=== PATIENT | male | born 2000 | race Caucasian/White ===

== ENCOUNTER 2023-05-18 08:00 | Outpatient (RCR) | payer SELFPAY ==
--- NOTE | 2023-04-14 07:19 | HP.OTEVAL ---
Patient's Visit Information Visit Information Visit Information: TOMI LOREDO is a 22 year old M, referred to Occupational Therapy by EVERARDO ANGELA, with a diagnosis of left hand traumatic laceration. Date of Evaluation: 03/30/23 Occupational Therapist: Paulette Abdalla, RISHI/Melania, CHT Subjective Subjective: This 22 year old male was seen for OT eval with dx of open fx of of left MF middle phalanx, extensor tendon laceration of left MF, open fx left 5th Metacarpal head, Extensor tendon laceration of left SM. DOI 03/16/23 Table saw injury DOS 03/22/23 put underwent a irrigation and debridement of open fx. ORIF of left MF open middle phalanx fx placement of dynamic external fixation, Repair of left MF extensor tendon Open treatment of left 5th metacarpophalangeal joint articular fx (fragment excision) Repair of left SF extensor tendon pt arrives s/p 1 week and 1 day s/p with orders for orthosis fabrication , rehabilitation per protocol ( Dr. 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 pt states he is back to work with office tasks pt states he will return to Tuesday2023 pt arrives to day with volar paddle orthosis- good fit in need of no adj, change in strapping as not clinging to Velcro. other than that pt states feel good- pt verbally reports his amadeo. with pin site care and dressing. sites great. ADLs Comments: pt right handed and at time avoiding use of left UE for ADLs and IADls due to newly healing structures Pain left hand: Current Pain Intensity: 3 Pain Intensity Range: 4 ROM ROM Comments: left PIP IF 0/15 left PIP MF -0/trace left PIP RF -10/30 left PIP -5/10 testing rest position Strength Telesales Consultant: right 95# left NT Lateral Pinch: right 22# left NT Tripod Pinch: right 14# left NT Strength Comments: will test left at later date Sensation Sensation Comments: pt states he is able to feel all light touch- will test with monofilaments at later date Quick DASH-Disab of Arm,Shoulder& Hand Quick DASH Score: 56.6650 Goals Goal:100% adherence to protocol: Yes Comment: middle pahlanx fx tension band wire protocol Goal:Daily scar massage when approriate: Yes Goal:ROM equal to unaffected hand: Yes Goal:Telesales Consultant/Pinch strength at least 75% of unaffected hand: Yes Goal:No pain with affected hand use: Yes Goal:PIP Circumferences equal to unaffected hand: Yes Goal:Full use of affected hand in daily activities including work: Yes Other Goal: orthosis use Rehabilitation General Assessment: pt arrives s/p 1 week and 1 day DOS 03/22/23 put underwent a irrigation and debridement of open fx. ORIF of left MF open middle phalanx fx placement of dynamic external fixation, Repair of left MF extensor tendon Open treatment of left 5th metacarpophalangeal joint articular fx (fragment excision) Repair of left SF extensor tendon pt demo need for skilled OT services 2-3x week for 12 weeks to increase pts ROM, strength to return pt to his PLOF. pt demo understanding and agrees to POC. Rehabilitation Potential: Good Anticipated Interventions Anticipated Interventions: Early Active Motion, A/AAROM/PROM, Strengthening, Edema Control, Scar Care, Triggerpoint Release, Desensitization, Sensory Retraining, Modalities, Orthoses, Joint Protection/Energy Conservation, Ergonomic Education, Fine Motor Coord/Arron, Education re assistive Equipment, Education re Diagnosis, Caregiver Training and Home Program Visit Plan Frequency: 1-2x /Week Duration: 3 Months General Plan: s/p day 3-5 edema control- Tention band wires will permit full AROM (unless otherwise ordered) Full arch AROM ex may be performed 4-6x a day 25 repetitions. orthosis between ex and at night s/p day 10-14 suture removed - wound healed may initiate scar mtg. self PROM ex may be added( will hold due to extensor tendon repair)will perform AROM S/P week 3-4 monitor extensor lag- if dr. weston may initiate a custom-josefina. low-load dynamic flexion orthosis s/p wee 4-6 hand based extension orthosis may be reduced to a finger orthosis in extension - Digi-sleeves or gel sleeve may be used for edema and scar S/P 6-8 wearing time of static progressive and dynamic orthosis during the day should gradually be reduced and eliminated- goal would be d/c orthosis during the day and by 8 weeks , and d/c night finger extension orthosis at night by weeks 10 is recommended Hand strengthening my be initiate with putty and hand bell attendant TEXT: Thank you for the opportunity to evaluate your patient. For Medicare and Medicare HMO plans, please review the plan of care and approve it. It will need to be FAXED BACK to us at [phone] for Medicare purposes. Please let me know if there are questions or concerns regarding this plan of care. Physician Signature: Date:
--- NOTE | 2023-04-27 15:20 | HP.OTREVAL ---
Re-Evaluation Intro: EVERARDO ANGELA, It has been my pleasure to treat TOMI LOREDO over the last 4 visits for left hand traumatic laceration. Please see the progress note below for an update on the occupational therapy plan of care! Subjective Subjective: pt arrives to session 5 weeks and 1 day s/p pt demo with orthosis use/ healed wounds noted DIP flexed position on MF Objective Objective/Function: pt was seen for 4 OT visits left MCP LF 0/0 PIP 0/80 left MCP RF 0/65 PIP 0/90 left MCP MF 0/60 PIP 0/50 increase from 0/30 pt demo with DIP extensor lag- orthosis was adj to decrease resting flexion of DIP of MF. pt is still in orthosis while at work and taking it off about 2-3 x a day to do his ex. therapist ed. pt to increase performing his ex more frequently. pt demo understanding. Left LF MCPJ no noted motion. pt ready to have pins out and initiate increase use of hand. therapist ed. pt will perform more x-ray and will then decide on tension band pin removal. Plan Plan Frequency: 1-2x /Week Duration: 3 Months Goals Goals Patient Goals: Regain Mobility, Regain Strength, Improve Fine Motor Skills, Use Hand/Wrist/Arm Normally Again and Be More Independent in ADLS Goal:100% adherence to protocol: Yes Goal:Daily scar massage when approriate: Yes Goal:ROM equal to unaffected hand: Yes Goal:Laborer Ammunition Assembly/Pinch strength at least 75% of unaffected hand: Yes Goal:No pain with affected hand use: Yes Goal:PIP Circumferences equal to unaffected hand: Yes Goal:Full use of affected hand in daily activities including work: Yes Other Goal: orthosis use Anticipated Interventions Anticipated Interventions Anticipated Interventions: Early Active Motion, A/AAROM/PROM, Strengthening, Edema Control, Scar Care, Triggerpoint Release, Desensitization, Sensory Retraining, Modalities, Orthoses, Joint Protection/Energy Conservation, Ergonomic Education, Fine Motor Coord/Arron, Education re assistive Equipment, Education re Diagnosis, Caregiver Training and Home Program Re-Evaluation Ending Re-evaluation ending: Please do not hesitate to contact me at [phone] by phone or if you have questions or concerns regarding this new plan of care! Sincerely, Paulette Abdalla, OTR/L, CHT
--- NOTE | 2023-09-09 10:27 | HP.OT.NRP ---
Patient Information Patient Information: TOMI LOREDO was seen in my office for initial evaluation on 03/30/23. The following Plan of Care was established for this patient: POC Established Initial Frequency: 1-2x /Week Initial Duration: 3 Months Plan: cont as bertram adjust orthosis as tolerated Anticipated Interventions Anticipated Interventions: Early Active Motion, A/AAROM/PROM, Strengthening, Edema Control, Scar Care, Triggerpoint Release, Desensitization, Sensory Retraining, Modalities, Orthoses, Joint Protection/Energy Conservation, Ergonomic Education, Fine Motor Coord/Arron, Education re assistive Equipment, Education re Diagnosis, Caregiver Training and Home Program Last Seen Last Seen: This patient was last seen in our office 05/18/23. Pertinent comments regarding their Occupational therapy will appear below: pt was last seen on 05/18/23 no further apts scheduled and due to time lapse in services pt is d/c at this time. At this point I will be discontinuing this patient from occupational therapy. I would be happy to see this patient again in the future if found appropriate by the physician. Thank you! Paulette Abdalla, OTR/L, CHT
== END 2023-05-18 19:00 | disposition home or self-care (01) ==
LOC: OT 08:00
PROVIDERS: PCP Family Medicine
DX: S61.213D Laceration without foreign body of left middle finger without damage to nail, subsequent encounter (principal); S61.313D Laceration without foreign body of left middle finger with damage to nail, subsequent encounter; S62.623D Displaced fracture of middle phalanx of left middle finger, subsequent encounter for fracture with routine healing; S62.643D Nondisplaced fracture of proximal phalanx of left middle finger, subsequent encounter for fracture with routine healing; S61.217D Laceration without foreign body of left little finger without damage to nail, subsequent encounter; S62.367D Nondisplaced fracture of neck of fifth metacarpal bone, left hand, subsequent encounter for fracture with routine healing
CPT/HCPCS: 97110; 97140; 97166; 97530